=== PATIENT | male | born 1960 | race Caucasian/White ===

== ENCOUNTER 2018-12-29 13:01 | Emergency (ER) | payer SELFPAY ==
[~2018-12-29] VITALS: Ht 172.7 cm; Wt 106.0 kg
[2018-12-29 13:19] VITALS: BP 140/88
[2018-12-29 14:31] LABS: MICROSCOPIC AUTO
[2018-12-29 14:32] LABS: CULTURE INDICATED? YES
--- NOTE | 2018-12-29 16:17 | NUR ---
CALLED FOR ROOM, NO ANSWER.
--- NOTE | 2018-12-29 16:34 | NUR ---
2ND CALL FOR ROOM, NO ANSWER.
--- NOTE | 2018-12-29 16:50 | NUR ---
3RD CALL FOR ROOM, NO ANSWER.
== END 2018-12-29 16:54 | disposition left against medical advice (07) ==
LOC: ED 16:48
DX: R33.8 Other retention of urine (principal)
CPT/HCPCS: 81001; 87086; 99283

== ENCOUNTER 2018-12-30 13:25 | Emergency (ER) | payer SELFPAY ==
[~2018-12-30] VITALS: Ht 167.6 cm; Wt 107.4 kg
--- NOTE | 2018-12-30 14:03 | NUR ---
0 ML BLADDER SCAN RESULTS.
--- NOTE | 2018-12-30 14:07 | NUR ---
PT AMBULATORY TO ROOM 4 W/ C/O DRIBBLING URINATION AND INCREASED FREQUENCY PT STATES UP TO 30 TIMES/DAY. STATES SOMETIMES HE DRIBBLES AND SOMETIMES "IT WORKS NORMALLY FULL FLOOD". PT RESTING ON EDEN. ALOK. MONITORS APPLIED.
[2018-12-30 14:43] LABS: ALBUMIN 3.6 g/dL (3.4-5.0); ANION GAP 5 mmol/L (5-15); CALCIUM 8.7 mg/dL (8.5-10.1); CHLORIDE 106 mmol/L (98-107); CREATININE 0.91 mg/dL (0.7-1.3)
[2018-12-30 14:45] LABS: MEAN CORPUSCULAR HEMOGLOBIN 29.8 pg (27.5-34.5); MEAN CORPUSCULAR HGB CONC 33.7 g/dL (33.2-36.2); MEAN CORPUSCULAR VOLUME 88.7 fL (81-97); MEAN PLATELET VOLUME 8.4 fL (7.4-10.4); PLATELET COUNT 236 x10^3/uL (130-400); RED BLOOD COUNT 5.55 x10^6/uL (4.38-5.82); RED CELL DISTRIBUTION WIDTH 12.8 % (9.4-14.8)
[2018-12-30 14:57] LABS: BASOPHILS # (AUTO) 0.05 x10^3/uL (0-0.1); BASOPHILS % (AUTO) 1 % (0-1); EOSINOPHILS # (AUTO) 0.26 x10^3/uL (0-0.4); EOSINOPHILS % (AUTO) 4 % (1-7); LYMPHOCYTES % (AUTO) 28 % (22-44); MD SCAN; MONOCYTES # (AUTO) 0.49 x10^3/uL (0.2-0.8); MONOCYTES % (AUTO) 7 % (2-9); NEUTROPHILS # (AUTO) 4.58 x10^3/uL (1.8-6.8); NEUTROPHILS % (AUTO) 61 % (42-75)
--- NOTE | 2018-12-30 14:59 | NUR ---
PT CHART REVIEWED AND PLACED FOR RECHECK.
--- NOTE | 2018-12-30 15:24 | NUR ---
PT RESTING ON GURNEY. MARADIAGA
[2018-12-30 16:10] VITALS: BP 161/82
--- NOTE | 2018-12-30 16:10 | NUR ---
PT RESTING ON EDEN. NADN. MENENDEZS. AWARE OF POC FOR DC.
== END 2018-12-30 16:22 | disposition home or self-care (01) ==
LOC: ED 15:32
DX: N41.0 Acute prostatitis (principal); N40.0 Benign prostatic hyperplasia without lower urinary tract symptoms
CPT/HCPCS: 36415; 74176; 80048; 82040; 85025; 99284